=== PATIENT | female | born 1985 | race Two or more races ===

== ENCOUNTER 2025-02-11 09:19 | Emergency (ER) | payer OTHER ==
[~2025-02-11] VITALS: Ht 154.9 cm; Wt 64.7 kg
[2025-02-11 10:12] VITALS: PULSE 77; RESP 16; O2SAT 99
--- NOTE | 2025-02-11 10:28 | ED.PDOC ---
ENTRY LEVEL ACCOUNTING CLERK HPI Comments 40 y/o F, with PMHx of ectopic presents to the ED for CC of vaginal bleeding. Patient states, that she is currently LMP 12/03/24 and has been experiencing vaginal bleeding x1week. Patient reports, bleeding to have started as spotting and as of yesterday (02/10/25) bleeding was heavy flowing. Patient relays, she had a previous ectopic [id number] ago. Patient denies fever, chills, nausea, vomiting, weakness, or fatigue. No other symptoms or modifying factors present at this time. Chief Complaint: Vaginal Bleed Time Seen by MD: 09:50 Reviewed Notes: Nurses Notes, Medications, Allergies Allergies: Coded Allergies: NO KNOWN ALLERGIES (Unverified , 02/11/25) Home Meds Active Scripts Cephalexin (KEFLEX CAPSULE) 250 Mg Cp, 250 MG PO QID for 5 Days, #20 BOTTLE Prov:RICHARDSON GREEN MD 02/11/25 Information Source: Patient Mode of Arrival: EMS Timing: Weeks Prehospital treatment: None Severity: Moderate Vaginal Lesions: None Bleeding Quality: Bright Red Vaginal Mass: None Onset Of Mass/Bleeding: Spontaneous Sexual Activity: Last Consensual [place]: Unknown Control: None History of: Previous Ectopic Blood Type: Unknown Symptoms of Possible : None Associated Signs and Symptoms: Vaginal Bleeding Past Medical History PAST MEDICAL HISTORY: Denies Surgical History: Denies all surgeries [employer]MENT INST[employer]ER History: Ectopic Family History Family History: Unknown Social History Smoker: Non-Smoker Alcohol: Denies ETOH Use Drugs: Denies Drug Use Lives In: Home Constitutional: denies: chills, diaphoresis, fatigue, fever, malaise, sweats, weakness, others EENTM: denies: blurred vision, double vision, ear bleeding, ear discharge, ear drainage, ear pain, ear ringing, eye pain, eye redness, hearing loss, mouth pain, mouth swelling, nasal discharge, nose bleeding, nose congestion, nose pain, photophobia, tearing, throat pain, throat swelling, voice changes, others Respiratory: denies: cough, hemoptysis, orthopnea, SOB at rest, shortness of breath, SOB with excertion, stridor, wheezing, others Cardiovascular: denies: chest pain, dizzy spells, diaphoresis, Dyspnea on exertion, edema, irregular heart beat, left arm pain, lightheadedness, palpitations, PND, syncope, others Gastrointestinal: denies: abdomen distended, abdominal pain, blood streaked bowels, constipated, diarrhea, dysphagia, difficulty swallowing, hematemesis, melena, nausea, poor appetite, poor fluid intake, rectal bleeding, rectal pain, vomiting, others Genitourinary: reports: abnormal vagina bleeding; denies: burning, dyspareunia, dysuria, flank pain, frequency, hematuria, incontinence, pain, , vagina discharge, urgency, others Neurological: denies: dizziness, fainting, headache, left sided numbness, left sided weakness, numbness, paresthesia, pre-existing deficit, right sided numbness, right sided weakness, seizure, speech problems, tingling, tremors, weakness, others Musculoskeletal: denies: back pain, gout, joint pain, joint swelling, muscle pain, muscle stiffness, neck pain, others Integumetry: denies: bruises, change in color, change in hair/nails, dryness, laceration, lesions, lumps, rash, wounds, others Allergic/Immunocompromised: denies: Difficulty Healing, Frequent Infections, Hives, Itching, others Hematologic/Lymphatic: denies: anemia, blood clots, easy bleeding, easy bruising, swollen glands, others Endocrine: denies: excessive hunger, excessive sweating, excessive thirst, excessive urination, flushing, intolerance to cold, intolerance to heat, unexplained weight gain, unexplained weight loss, others Psychiatric: denies: anxiety, bipolar disorder, depression, hopeless, panic disorder, schizophrenia, sleepless, suicidal, others All Other Systems: Reviewed and Negative Physical Exam General Appearance: Moderate Distress HEENT: Normal ENT Inspection, Pharynx Normal, TMs Normal Neck: Full Range of Motion, Non-Tender, Normal, Normal Inspection Respiratory: Chest Non-Tender, Lungs Clear, No Accessory Muscle Use, No Respiratory Distress, Normal Breath Sounds Cardiovascular: No Edema, No JVD, No Murmur, No Gallop, Normal Peripheral Pulses, Regular Rate/Rhythm Breast Exam: Deferred Gastrointestinal: No Organomegaly, Non Tender, No Pulsatile Mass, Normal Bowel Sounds, Soft Genitalia: Deferred Pelvic: Deferred Rectal: Deferred Extremities: No calf tenderness, Normal capillary refill, Normal inspection, Normal range of motion, Non-tender, No pedal edema Musculoskeletal : Apperance: Normal Neurologic: Alert, operating room scheduler II-XII nml as Tested, No Motor Deficits, Normal Affect, Normal Mood, No Sensory Deficits Cerebellar Function: Normal Reflexes: Normal Skin: Dry, Normal Color, Warm Peripheral Pulses: 3+ Radial (R), 3+ Radial (L) Lymphatic: No Adenopathy Was a procedure done? Was a procedure done?: No Differential Diagnosis ([employer]ER) Vaginal Bleeding: - Complete, - Incomplete, - Inevitable, - Missed, - Threatened, Ectopic X-Ray, Labs, Meds, VS Vital Signs Date Time Temp Pulse Resp B/P (MAP) Pulse Ox O2 Delivery O2 Flow Rate FiO2 02/11/25 13:37 97.9 83 16 112/70 (84) 97 97.9 02/11/25 10:12 77 16 99 Room Air* 0 21 02/11/25 10:05 97.9 77 16 137/91 (106) 99 97.9 02/11/25 10:05 77 17 99 Room Air 02/11/25 09:20 98.4 79 18 120/99 (106) 98 98.4 Lab Test 02/11/25 10:48 02/11/25 09:45 Range/Units Urine Color Light-yellow Yellow Urine Clarity Clear Clear Urine pH 6.0 5.0-9.0 Urine Specific [place] 1.014 1.001-1.035 Urine Protein Negative Negative Urine Ketones Negative Negative Urine Blood 2+ H Negative /uL Urine Nitrite Negative Negative Urine Bilirubin Negative Negative Urine Urobilinogen Normal Negative mg/dL Urine Leukocyte Esterase 1+ Negative /uL Urine RBC 1 0 - 4 /hpf Urine Microscopic WBC 2 0-5 /HPF Urine Squamous Epithelial Cells Few <5 /hpf Urine Bacteria None seen None Seen /hpf Urine Glucose Normal Normal mg/dL Beta HCG, Quantitative 00256.8 H 1.5-4.2 mIU/mL [address] [address] Ph: [phone] DIAGNOSTIC IMAGING Diagnostic Imaging Report : [id number] Signed PATIENT: ELIZABETH ARIZACT: [id number] UNIT: [id number] : 1985 LOC: ER ROOM / BED: / AGE / SEX: 40 / F ADM STATUS: REG ER SERVICE [id number] ORDERING PHYSICIAN: RICHARDSON GREEN MD PROCEDURE(s): OB4US - OB ULTRASOUND COMP LESS 14WKS REASON: cramping ORDER NUMBER(s): [id number], ACCESSION NUMBER(s): [id number] OB ULTRASOUND <14 WEEKS: HISTORY: cramping TECHNIQUE: Multiple real-time grayscale sonographic images of the pelvis with duplex Doppler color flow, spectral and M-mode analysis. TRANSDUCERS: Transabdominal and transvaginal FINDINGS: The uterus measures 10.3 x 6.5 x 5.8 cm. Suggestion of a intrauterine fibroid measuring 3.9 cm. The cervix not well visualized Right ovary measures 3.6 x 1.7 x 2.3 cm with normal Doppler color flow Left ovary measures 3.5 x 1.7 x 2.5 cm with normal Doppler color flow IUP gestational at 6 weeks 1 days average ultrasound age based on gestational sac size of 1.8 cm No pole visualized. No heart rate detected. Small subchorionic hematoma measuring 1.9 cm. IMPRESSION: Gestational sac in the intrauterine cavity measuring 1.8 cm correlating to 6 weeks 1 day. No heart rate is detected. Recommend correlation with beta HCG and short-term follow-up pelvic ultrasound. Small subchorionic hematoma measuring 1.9 cm. Suggestion of a intrauterine fibroid measuring 2.9 cm. ATED BY: LISE DOSHI MD DICTATED DATE/TIME: 02/11/25 115 SIGNED BY: LISE DOSHI MD SIGNED DATE/TIME: 02/11/25 115 CC: [place] [id number] Ph: [phone] DIAGNOSTIC IMAGING Diagnostic Imaging Report : [id number] Signed PATIENT: ELIZABETH ARIZACT: [id number] UNIT: [id number] : 1985 LOC: ER ROOM / BED: / AGE / SEX: 40 / F ADM STATUS: REG ER SERVICE 0000 ORDERING PHYSICIAN: RICHARDSON GREEN MD PROCEDURE(s): OBTVG - OB TRANS VAGINAL US REASON: CRAMPING ORDER NUMBER(s): [id number], ACCESSION NUMBER(s): [id number] OB ULTRASOUND <14 WEEKS: HISTORY: cramping TECHNIQUE: Multiple real-time grayscale sonographic images of the pelvis with duplex Doppler color flow, spectral and M-mode analysis. TRANSDUCERS: Transabdominal and transvaginal FINDINGS: The uterus measures 10.3 x 6.5 x 5.8 cm. Suggestion of a intrauterine fibroid measuring 3.9 cm. The cervix not well visualized Right ovary measures 3.6 x 1.7 x 2.3 cm with normal Doppler color flow Left ovary measures 3.5 x 1.7 x 2.5 cm with normal Doppler color flow IUP gestational at 6 weeks 1 days average ultrasound age based on gestational sac size of 1.8 cm No pole visualized. No heart rate detected. Small subchorionic hematoma measuring 1.9 cm. IMPRESSION: Gestational sac in the intrauterine cavity measuring 1.8 cm correlating to 6 weeks 1 day. No heart rate is detected. Recommend correlation with beta HCG and short-term follow-up pelvic ultrasound. Small subchorionic hematoma measuring 1.9 cm. Suggestion of a intrauterine fibroid measuring 2.9 cm. ATED BY: LISE DOSHI MD DICTATED DATE/TIME: 02/11/251156 SIGNED BY: LISE DOSHI MD SIGNED DATE/TIME: 02/11/25 115 CC: Patient alert. Came in because of spotting. Vitals stable. Answering questions. Ambulating. Ultrasound reveals six weeks with no heart tones. Explained to the patient that she will need serial follow up. Spoke with OBGYN. Urinalysis shows UTI. Was given prescription of Keflex antibiotic. Was told to follow up with her OBGYN. Was told to follow up with her primary care physician. Was told to come back if there is any problem. Time of 1ST Reevaluation: 10:20 Reevaluation 1ST: Improved Patient Education/Counseling: Diagnosis, Treatment Family Education/Counseling: No Family Present Departure 1 Departure Time of Disposition: 13:54 Impression: Primary Impression: Normal Qualified Codes: Z34.91 - Encounter for supervision of normal , unspecified, first trimester Additional Impressions: UTI (urinary tract infection) Qualified Codes: N30.00 - Acute cystitis without hematuria Subchorionic hemorrhage Qualified Codes: O46.8X9 - Other antepartum hemorrhage, unspecified trimester Disposition: 02 SHORT TERM HOSPITAL Admit to: Med Surg Condition: Guarded e-Prescriptions Cephalexin (KEFLEX CAPSULE) 250 Mg Cp 250 MG PO QID for 5 Days, #20 BOTTLE Prov: RICHARDSON GREEN MD 02/11/25 Discharged With: Self Critical Care Note Critical Care Time?: No Stability Stability form required: No Heart Score Heart Score: Heart Score Response (Comments) Value History N/A 0 EKG N/A 0 Age N/A 0 Risk Factors N/A 0 Troponin N/A 0 Total 0 I personally scribed for RICHARDSON GREEN MD ([email or web address]) on 02/11/25 at 10:28. Electronically submitted by Gertrudis Lucas ([email or web address]). I personally scribed for RICHARDSON GREEN MD ([email or web address]) on 02/11/25 at 12:35. Electronically submitted by Gertrudis Lucas ([email or web address]). I personally scribed for RICHARDSON GREEN MD ([email or web address]) on 02/11/25 at 12:36. Electronically submitted by Gertrudis Lucas ([email or web address]). RICHARDSON GREEN MD February 11, 2025 10:28
[2025-02-11 10:48] LABS: Urine Bacteria None Seen /hpf (None Seen)
[2025-02-11 11:03] LABS: Urine Blood 2+ /uL (Negative); Urine Clarity Clear (Clear); Urine Color Light-Yellow (Yellow); Urine Protein, UAD Negative (Negative); Urine Specific Gravity 1.014 (1.001-1.035); Urine Squamous Epithelial Cell FEW /hpf (<5); Urine Urobilinogen Normal (Negative); Urine WBC 2 /HPF (0-5)
--- NOTE | 2025-02-11 11:59 | DVH ---
OB ULTRASOUND <14 WEEKS: HISTORY: cramping TECHNIQUE: Multiple real-time grayscale sonographic images of the pelvis with duplex Doppler color f low, spectral and M-mode analysis. TRANSDUCERS: Transabdominal and transvaginal FINDINGS: The uterus measures 10.3 x 6.5 x 5.8 cm. Suggestion of a intrauterine fibroid measuring 3.9 cm. The cervix not well visualized Right ovary measures 3.6 x 1.7 x 2.3 cm with normal Doppler color flow Left ovary measures 3.5 x 1.7 x 2.5 cm with normal Doppler color flow IUP gestational at 6 weeks 1 days average ultrasound age based on gestational sac size of 1.8 cm No pole visualized. No heart rate detected. Small subchorionic hematoma measuring 1.9 cm. IMPRESSION: Gestational sac in the intrauterine cavity measuring 1.8 cm correlating to 6 weeks 1 day. No he art rate is detected. Recommend correlation with beta HCG and short-term follow-up pelvic ultrasound. Small subchorionic hematoma measuring 1.9 cm. Suggestion of a intrauterine fibroid measuring 2.9 cm.
[2025-02-11 13:37] VITALS: BP 112/70; PULSE 83; RESP 16; TEMP 97.9; O2SAT 97
[2025-02-11] MEDS ORDERED: CEPH250C PO (13:55)
== END 2025-02-11 14:13 | disposition home or self-care (01) ==
LOC: ER 09:19
DX: O02.1 Missed abortion (principal); O23.41 Unspecified infection of urinary tract in pregnancy, first trimester; N39.0 Urinary tract infection, site not specified; Z3A.01 Less than 8 weeks gestation of pregnancy
CPT/HCPCS: 36415; 76801; 76817; 81001; 84702